=== PATIENT | male | born 1985 | race Two or more races ===

== ENCOUNTER → 2022-04-06 | Outpatient (CLI) | payer OTHER | END | disposition home or self-care (01) | LOC: LAB 05:29 | PROVIDERS: ATTEND Obstetrics & Gynecology | DX: Z20.828 Contact with and (suspected) exposure to other viral communicable diseases (principal); Z20.818 Contact with and (suspected) exposure to other bacterial communicable diseases ==

== ENCOUNTER 2024-06-05 21:31 | Emergency (ER) | payer OTHER ==
[~2024-06-05] VITALS: Ht 167.6 cm; Wt 90.7 kg
[2024-06-05] MEDS ORDERED: KETOROLAC TROMETHAMINE 30 MG VIAL IV ONE (22:00)
[2024-06-05] MEDS ORDERED: TAMSULOSIN HCL 0.4 MG CAP PO ONE ×2 (22:00→22:07)
[2024-06-05] MEDS ORDERED: 0.9 % SODIUM CHLORIDE 1,000 ML IV SCH (22:00)
[2024-06-05] MEDS ORDERED: ONDANSETRON HCL 2 MG/ML VIAL IV ONE (22:00)
[2024-06-05] MEDS ORDERED: ONDANSETRON HCL 2 MG/ML VIAL ONE (22:07)
[2024-06-05] MEDS ORDERED: KETOROLAC TROMETHAMINE 30 MG VIAL ONE (22:07)
[2024-06-05 23:42] LABS: HEMATOCRIT 40.5 % (39.0-48.0); HEMOGLOBIN 13.2 g/dL (13-16.00); MEAN CELL VOLUME 84.1 fL (80.0-100.00); MEAN CORPUSCULAR HEMOGLOBIN 27.4 pg (27.00-32.0); MEAN CORPUSCULAR HGB CONC 32.6 g/dl (32.0-36.0); PLATELET COUNT 263 K/uL (150-450); RED BLOOD COUNT 4.81 M/uL (4.00-6.00); RED CELL DISTRIBUTION WIDTH 14.4 % (11.5-14.5)
[2024-06-06 00:08] LABS: BILIRUBIN TOTAL 0.31 mg/dL (0.3-1.2); CALCIUM 9.6 mg/dL (8.5-10.1); CREATININE SERUM 1.4 mg/dL (0.70-1.30); GFR 55.85; POTASSIUM 3.61 mEq/L (3.5-5.1)
[2024-06-06 01:28] LABS: URINE APPEARANCE Cloudy; URINE BILIRRUBIN Negative (NEGATIVE); URINE BLOOD Negative; URINE COLOR Yellow; URINE GLUCOSE Negative (NEGATIVE); URINE KETONE Negative (NEGATIVE); URINE LEUKOCYTE Negative; URINE NITRATE Negative; URINE PROTEIN 30 (NEGATIVE)
[2024-06-06 01:32] LABS: URINE BACTERIA 28.9 uL (0.0-1933); URINE EPITHELIAL CELLS 6.6 uL (0.0-38.8); URINE RBC 8.8 uL (0.0-20.8); URINE WBC 42.8 uL (0.0-23.2)
[2024-06-06 01:46] LABS: URINE CAST 0.76 uL (0.0-1.40)
[2024-06-06] MEDS ORDERED: MEPERIDINE HCL/PF 50 MG/ML VIAL IM STA (01:56)
[2024-06-06] MEDS ORDERED: TAMS0.4C PO (03:24)
[2024-06-06] MEDS ORDERED: KETO10TA2 PO (03:24)
[2024-06-06] MEDS ORDERED: CIPRO500 MG PO (03:25)
== END 2024-06-06 03:37 ==
LOC: ER 21:33
PROVIDERS: General Practice
DX: N23 Unspecified renal colic (principal); N20.1 Calculus of ureter